=== PATIENT | male | born 1975 | race Two or more races ===

== ENCOUNTER → 2018-11-18 | Outpatient (CLI) | payer OTHER | END | disposition home or self-care (01) | LOC: Rad HDHVI 14:05 | PROVIDERS: ATTEND Internal Medicine Cardiovascular Disease | DX: R07.89 Other chest pain (principal); I10 Essential (primary) hypertension; E78.5 Hyperlipidemia, unspecified; Z82.49 Family history of ischemic heart disease and other diseases of the circulatory system | CPT/HCPCS: 78452; 93017; 93306; 96374; A9500 ==

== ENCOUNTER → 2022-07-29 | Outpatient (CLI) | payer OTHER ==
[2022-07-29 09:31] LABS: Urine Bacteria NONE SEEN /hpf (None Seen); Urine Blood 3+ /uL (Negative); Urine Specific Gravity 1.013 (1.001-1.035); Urine WBC 5 /hpf (0 - 3)
[2022-07-29 09:33] LABS: Basophils # (auto) 0.1 10 ^3/uL (0-0.2); Basophils % (auto) 0.7 % (0.0-2.0); Eosinophils # (auto) 0.2 10 ^3/uL (0-0.8); Hematocrit 46.1 % (41.0-53.0); Hemoglobin 15.5 g/dL (13.5-17.5); Lymphocytes # (auto) 2.8 10 ^3/uL (0.4-5.4); Lymphocytes % (auto) 32.4 % (10.0-50.0); Mean Corpuscular Hemoglobin 30.4 pg (28.0-32.0); Mean Corpuscular Hgb Conc. 33.5 g/dL (32.0-36.0); Mean Corpuscular Volume 90.5 fL (80.0-100.0); Monocytes # (auto) 0.8 10 ^3/uL (0-1.3); Monocytes % (auto) 9.2 % (0.0-12.0); Neutrophils # (auto) 4.8 10 ^3/uL (1.6-8.6); Neutrophils % (auto) 55.7 % (37.0-80.0); Nucleated Red Blood Cells % 0.2 %; Red Cell Distribution Width 13.2 % (11.8-14.3); White Blood Cell 8.7 10^3/uL (4.4-10.8)
[2022-07-29 09:47] LABS: Calcium 8.6 mg/dL (8.5-10.1); Potassium 4.1 mmol/L (3.5-5.1)
[2022-07-29 09:53] LABS: BUN/Creatinine Ratio 15.5; Bilirubin, Total 0.4 mg/dL (0.2-1.0); Total Protein 7.2 g/dL (6.4-8.2)
[2022-07-29 09:57] LABS: Free T4 (Free Thyroxine) 0.91 ng/dL (0.89-1.76); Prostate Specific Antigen 0.45 ng/mL (0.0-4.0)
== END | disposition home or self-care (01) ==
LOC: LAB 09:04
PROVIDERS: ATTEND Internal Medicine
DX: I10 Essential (primary) hypertension (principal); E29.1 Testicular hypofunction; R31.9 Hematuria, unspecified; R80.9 Proteinuria, unspecified
CPT/HCPCS: 36415; 80053; 80061; 81001; 83036; 84153; 84403; 84439; 84443; 85025; 86703; 86803

== ENCOUNTER 2022-08-14 13:45 | Emergency (ER) | payer OTHER ==
[~2022-08-14] VITALS: Ht 172.7 cm; Wt 108.1 kg
[2022-08-14] MEDS ORDERED: KETOROLAC TROMETH 30 MG/ML 1ML VIAL IM ONE (14:45)
[2022-08-14 15:03] LABS: Urine Bacteria NONE SEEN /hpf (None Seen); Urine Blood 1+ /uL (Negative); Urine Specific Gravity 1.016 (1.001-1.035); Urine WBC 1 /hpf (0 - 3)
[2022-08-14 15:20] LABS: Hematocrit 43.9 % (41.0-53.0); Hemoglobin 14.8 g/dL (13.5-17.5); Mean Corpuscular Hemoglobin 30.2 pg (28.0-32.0); Mean Corpuscular Hgb Conc. 33.8 g/dL (32.0-36.0); Red Cell Distribution Width 13.6 % (11.8-14.3); White Blood Cell 10.5 10^3/uL (4.4-10.8)
[2022-08-14 15:32] LABS: BUN/Creatinine Ratio 15.3; Calcium 8.4 mg/dL (8.5-10.1)
[2022-08-14 15:34] LABS: Bilirubin, Total 0.3 mg/dL (0.2-1.0)
[2022-08-14 15:44] LABS: Mean Corpuscular Volume 89.2 fL (80.0-100.0); Red Blood Cells 4.78 10^6/uL (4.5-5.90)
[2022-08-14 15:47] LABS: Band Neutrophils % (manual) 0; Basophils % (manual) 0 (0.0-2.0); Blast Cells 0; Metamyelocytes % 0; Myelocytes % 0; Promyelocytes % 0; Reactive Lymphocytes 0
[2022-08-14] MEDS ORDERED: TAMSULOSIN HYDROCHLORIDE 0.4 MG CAP PO ONE (16:00)
[2022-08-14] MEDS ORDERED: HYDROcodone-ACET 5/325MG TAB PO ONE (16:00)
[2022-08-14 16:22] LABS: Lymphocytes % (manual) 27 (10.0-50.0)
[2022-08-14 16:23] LABS: Eosinophils % (manual) 5 (0-7); Monocytes % (manual) 6 (0-12)
[2022-08-14] MEDS ORDERED: TAM04C PO (16:57)
[2022-08-14 18:03] VITALS: BP 137/77
== END 2022-08-14 18:05 | disposition home or self-care (01) ==
LOC: ER 13:48
DX: N20.9 Urinary calculus, unspecified (principal); N23 Unspecified renal colic; N13.30 Unspecified hydronephrosis; Z87.442 Personal history of urinary calculi; Z90.49 Acquired absence of other specified parts of digestive tract; Z98.890 Other specified postprocedural states
CPT/HCPCS: 36415; 74176; 80053; 81001; 85007; 85025; 85027; 96372; 99285; J1885

== ENCOUNTER → 2022-08-18 | Outpatient (CLI) | payer OTHER ==
[~2022-08-18] MED LIST: TAM04C PO
[2022-08-18 15:34] LABS: Basophils # (auto) 0.1 10 ^3/uL (0-0.2); Basophils % (auto) 1.1 % (0.0-2.0); Eosinophils # (auto) 0.1 10 ^3/uL (0-0.8); Eosinophils % (auto) 1.6 % (0.0-7.0); Hemoglobin 15.4 g/dL (13.5-17.5); Lymphocytes # (auto) 2.7 10 ^3/uL (0.4-5.4); Lymphocytes % (auto) 30.7 % (10.0-50.0); Mean Corpuscular Hemoglobin 30.6 pg (28.0-32.0); Mean Corpuscular Hgb Conc. 34.2 g/dL (32.0-36.0); Mean Corpuscular Volume 89.6 fL (80.0-100.0); Monocytes # (auto) 0.6 10 ^3/uL (0-1.3); Monocytes % (auto) 7.4 % (0.0-12.0); Neutrophils # (auto) 5.2 10 ^3/uL (1.6-8.6); Neutrophils % (auto) 59.2 % (37.0-80.0); Nucleated Red Blood Cells % 0.1 %; Red Blood Cells 5.02 10^6/uL (4.5-5.90); Red Cell Distribution Width 13.4 % (11.8-14.3); White Blood Cell 8.7 10^3/uL (4.4-10.8)
[2022-08-18 16:15] LABS: Urine Bacteria NONE SEEN /hpf (None Seen); Urine Blood TRACE /uL (Negative); Urine Mucus FEW (None Seen); Urine Specific Gravity 1.022 (1.001-1.035); Urine WBC 1 /hpf (0 - 3)
[2022-08-18 16:31] LABS: Albumin 3.9 g/dL (3.4-5.0); Calcium 8.3 mg/dL (8.5-10.1); Potassium 3.8 mmol/L (3.5-5.1)
[2022-08-18 16:34] LABS: BUN/Creatinine Ratio 15.6; Phosphorus 3.1 mg/dL (2.5-4.90); Uric Acid 6.3 mg/dL (3.5-7.2)
[2022-08-18 16:35] LABS: Protein, Urine 22.3 mg/dL (0.0-11.9)
== END | disposition home or self-care (01) ==
LOC: LAB 15:21
PROVIDERS: ATTEND Student in an Organized Health Care Education/Training Program
DX: N18.30 Chronic kidney disease, stage 3 unspecified (principal); E11.22 Type 2 diabetes mellitus with diabetic chronic kidney disease; E11.21 Type 2 diabetes mellitus with diabetic nephropathy; D63.1 Anemia in chronic kidney disease; N39.0 Urinary tract infection, site not specified; R80.9 Proteinuria, unspecified; E21.3 Hyperparathyroidism, unspecified; M10.9 Gout, unspecified; E55.9 Vitamin D deficiency, unspecified
CPT/HCPCS: 36415; 80069; 81001; 82306; 82570; 83970; 84156; 84550; 85025

== ENCOUNTER → 2022-11-16 | Day surgery (SDC) | payer OTHER ==
[2022-11-13 10:38] LABS: Basophils # (auto) 0.1 10 ^3/uL (0-0.2); Basophils % (auto) 0.5 % (0.0-2.0); Eosinophils # (auto) 0.2 10 ^3/uL (0-0.8); Eosinophils % (auto) 1.6 % (0.0-7.0); Hematocrit 49.3 % (41.0-53.0); Hemoglobin 16.4 g/dL (13.5-17.5); Lymphocytes # (auto) 3.5 10 ^3/uL (0.4-5.4); Lymphocytes % (auto) 27.3 % (10.0-50.0); Mean Corpuscular Hgb Conc. 33.4 g/dL (32.0-36.0); Mean Corpuscular Volume 89.9 fL (80.0-100.0); Monocytes # (auto) 0.8 10 ^3/uL (0-1.3); Monocytes % (auto) 6.4 % (0.0-12.0); Neutrophils # (auto) 8.2 10 ^3/uL (1.6-8.6); Neutrophils % (auto) 64.2 % (37.0-80.0); Nucleated Red Blood Cells % 0.4 %; Red Blood Cells 5.48 10^6/uL (4.5-5.90); Red Cell Distribution Width 13.9 % (11.8-14.3); White Blood Cell 12.7 10^3/uL (4.4-10.8)
[2022-11-13 10:44] LABS: Urine Bacteria NONE SEEN /hpf (None Seen); Urine Blood Negative /uL (Negative); Urine Mucus FEW (None Seen); Urine Specific Gravity 1.016 (1.001-1.035); Urine WBC 3 /hpf (0 - 3)
[2022-11-13 10:56] LABS: INR 1.01 (0.9-1.15); Partial Thromboplastin Time 26.9 sec (24.6-33.4)
[2022-11-13 11:09] LABS: Potassium 4.2 mmol/L (3.5-5.1)
[2022-11-13 11:19] LABS: Albumin 4.1 g/dL (3.4-5.0); BUN/Creatinine Ratio 12.7 (10.0-20.0); Bilirubin, Total 0.3 mg/dL (0.2-1.0); Calcium 9.1 mg/dL (8.5-10.1); Total Protein 7.4 g/dL (6.4-8.2)
[~2022-11-16] VITALS: Ht 172.7 cm; Wt 104.3 kg
[~2022-11-16] MED LIST changes: +DILT240C59 PO; +ESCI20TA PO; +HYDR-4798 PO; +HYDROmorphone HCL 2 MG/ML VL/or syr IV PRN; +IBUP800T26 PO; +LEVO750T8 PO; +LIDOCAINE 2% (LOCAL ANESTH.) PF 5ml SDV ONE; +LOSA-39 PO; +MAGN400T40 OR; +MIDAZOLAM HCL 2MG/2ML 2ml VIAL (1mg/ml) ONE; +ONDA-144 PO; +ONDANSETRON HCL 4 MG/2 ML VIAL IV PRN; +ONDANSETRON HCL 4 MG/2 ML VIAL ONE; +PROPOFOL 10 MG/ML 20 ML IV ONE; -TAM04C PO; +ceFAZolin 1GM/50ML 100 ML IV ONE; +fentaNYL CITRATE 100 MCG/2 ML VL ONE
[2022-11-16] MEDS: HYDROmorphone HCL 2 MG/ML VL/or syr IV PRN ×2 (08:54→09:04)
[2022-11-16 09:30] VITALS: BP 105/85
== END | disposition home or self-care (01) ==
LOC: SUR 06:09
PROVIDERS: ATTEND Urology
DX: N20.0 Calculus of kidney (principal); I10 Essential (primary) hypertension; Z79.899 Other long term (current) drug therapy
CPT/HCPCS: 36415; 50590; 80053; 81001; 85025; 85610; 85730; 87086; C1769; J0690; J1170; J2001; J2250; J2405; J2704; J3010; J7030

== ENCOUNTER 2022-11-18 14:42 | Emergency (ER) | payer OTHER ==
[~2022-11-18] VITALS: Ht 172.7 cm; Wt 108.0 kg
[~2022-11-18 14:42] MED LIST changes: -HYDR-4798 PO; -HYDROmorphone HCL 2 MG/ML VL/or syr IV PRN; -IBUP800T26 PO; -LEVO750T8 PO; -LIDOCAINE 2% (LOCAL ANESTH.) PF 5ml SDV ONE; -MIDAZOLAM HCL 2MG/2ML 2ml VIAL (1mg/ml) ONE; -ONDA-144 PO; -ONDANSETRON HCL 4 MG/2 ML VIAL IV PRN; -ONDANSETRON HCL 4 MG/2 ML VIAL ONE; -PROPOFOL 10 MG/ML 20 ML IV ONE; -ceFAZolin 1GM/50ML 100 ML IV ONE; -fentaNYL CITRATE 100 MCG/2 ML VL ONE
[2022-11-18 15:32] LABS: Urine Bacteria NONE SEEN /hpf (None Seen); Urine Blood 3+ /uL (Negative); Urine Budding Yeast OCCASIONAL /hpf (None Seen); Urine Specific Gravity 1.022 (1.001-1.035); Urine WBC 374 /hpf (0 - 3)
[2022-11-18] MEDS ORDERED: levoFLOXacin 250 MG TAB PO ONE (18:00)
[2022-11-18] MEDS ORDERED: LEVO750T8 PO (18:00)
[2022-11-18] MEDS ORDERED: HYDR-4798 PO (18:00)
[2022-11-18] MEDS ORDERED: HYDROcodone-ACET 10/325MG TAB PO ONE (18:00)
[2022-11-18] MEDS ORDERED: IBUP800T26 PO (18:00)
[2022-11-18] MEDS ORDERED: KETOROLAC TROMETH 60MG/2ML VIAL IM ONE (18:00)
[2022-11-18] MEDS ORDERED: ONDANSETRON ODT 4 MG TAB PO ONE (18:00)
[2022-11-18] MEDS ORDERED: ONDA-144 PO (18:01)
[2022-11-18 18:57] VITALS: BP 156/94
== END 2022-11-18 19:30 | disposition home or self-care (01) ==
LOC: ER 14:42
DX: N12 Tubulo-interstitial nephritis, not specified as acute or chronic (principal); R31.9 Hematuria, unspecified
CPT/HCPCS: 81001; 96372; 99284; J1885; Q0162

== ENCOUNTER 2022-11-23 16:13 | Inpatient (IN) | payer OTHER ==
[~2022-11-23] VITALS: Ht 172.7 cm; Wt 106.5 kg
[~2022-11-23 16:13] MED LIST changes: +HYDR-4798 PO; +IBUP800T26 PO; +LEVO750T8 PO; +ONDA-144 PO
[2022-11-23] MEDS ORDERED: ONDANSETRON HCL 4 MG/2 ML VIAL IV ONE (16:45)
[2022-11-23] MEDS ORDERED: KETOROLAC TROMETH 30 MG/ML 1ML VIAL IV ONE (16:45)
[2022-11-23] MEDS ORDERED: SODIUM CHLORIDE 0.9% 1,000 ML IVB ONE (16:45)
[2022-11-23 17:44] LABS: Basophils # (auto) 0.1 10 ^3/uL (0-0.2); Basophils % (auto) 0.6 % (0.0-2.0); Eosinophils # (auto) 0.1 10 ^3/uL (0-0.8); Eosinophils % (auto) 0.9 % (0.0-7.0); Hematocrit 49.2 % (41.0-53.0); Hemoglobin 16.3 g/dL (13.5-17.5); Lymphocytes % (auto) 23.5 % (10.0-50.0); Mean Corpuscular Hemoglobin 29.8 pg (28.0-32.0); Mean Corpuscular Hgb Conc. 33.2 g/dL (32.0-36.0); Mean Corpuscular Volume 89.8 fL (80.0-100.0); Monocytes # (auto) 1.2 10 ^3/uL (0-1.3); Monocytes % (auto) 9.1 % (0.0-12.0); Neutrophils # (auto) 8.6 10 ^3/uL (1.6-8.6); Neutrophils % (auto) 65.9 % (37.0-80.0); Nucleated Red Blood Cells % 0.4 %; Red Blood Cells 5.48 10^6/uL (4.5-5.90)
[2022-11-23 17:56] LABS: Albumin 4.2 g/dL (3.4-5.0); Calcium 8.7 mg/dL (8.5-10.1); Potassium 3.6 mmol/L (3.5-5.1)
[2022-11-23 17:59] LABS: BUN/Creatinine Ratio 10.9 (10.0-20.0); Bilirubin, Total 0.3 mg/dL (0.2-1.0); Total Protein 6.8 g/dL (6.4-8.2)
[2022-11-23] MEDS ORDERED: HYDROmorphone HCL 2 MG/ML VL/or syr IV ONE (18:30)
[2022-11-23 20:33] LABS: Urine Bacteria NONE SEEN /hpf (None Seen); Urine Blood Negative /uL (Negative); Urine Mucus FEW (None Seen); Urine Specific Gravity 1.025 (1.001-1.035); Urine WBC 1 /hpf (0 - 3)
[2022-11-23] MEDS ORDERED: ACETAMINOPHEN 325 MG TAB PO PRN (21:00)
[2022-11-23] MEDS: MORPHINE SULFATE INJ 2 MG/ml SYRG IV PRN (23:07)
[2022-11-23] MEDS: ONDANSETRON HCL 4 MG/2 ML VIAL IV PRN (23:07)
[2022-11-23] MEDS: HYDROcodone-ACET 5/325MG TAB PO PRN (23:53)
[2022-11-24] MEDS ORDERED: HYDROmorphone HCL 2 MG/ML VL/or syr IV ONE (01:00)
[2022-11-24] MEDS: ONDANSETRON HCL 4 MG/2 ML VIAL IV PRN (04:03)
[2022-11-24] MEDS: HYDROcodone-ACET 5/325MG TAB PO PRN ×3 (04:05→16:48)
[2022-11-24 06:46] LABS: Basophils # (auto) 0 10 ^3/uL (0-0.2); Basophils % (auto) 0.4 % (0.0-2.0); Eosinophils # (auto) 0 10 ^3/uL (0-0.8); Eosinophils % (auto) 0.2 % (0.0-7.0); Hematocrit 46.1 % (41.0-53.0); Hemoglobin 15.6 g/dL (13.5-17.5); Lymphocytes # (auto) 1.5 10 ^3/uL (0.4-5.4); Lymphocytes % (auto) 13.5 % (10.0-50.0); Mean Corpuscular Hemoglobin 30.2 pg (28.0-32.0); Mean Corpuscular Hgb Conc. 33.7 g/dL (32.0-36.0); Mean Corpuscular Volume 89.5 fL (80.0-100.0); Monocytes # (auto) 0.7 10 ^3/uL (0-1.3); Monocytes % (auto) 6.8 % (0.0-12.0); Neutrophils # (auto) 8.6 10 ^3/uL (1.6-8.6); Neutrophils % (auto) 79.1 % (37.0-80.0); Red Blood Cells 5.15 10^6/uL (4.5-5.90); Red Cell Distribution Width 13.9 % (11.8-14.3); White Blood Cell 10.8 10^3/uL (4.4-10.8)
[2022-11-24 06:49] LABS: BUN/Creatinine Ratio 11.4 (10.0-20.0); Calcium 8.7 mg/dL (8.5-10.1); Potassium 3.9 mmol/L (3.5-5.1)
[2022-11-24] MEDS: MORPHINE SULFATE INJ 2 MG/ml SYRG IV PRN (07:05)
[2022-11-24] MEDS ORDERED: MANNITOL FTV 25% 12.5 GM/50 ML 50 ML IV ONE (09:45)
[2022-11-24] MEDS ORDERED: cloNIDine HCL 0.1 MG TAB PO PRN (09:45)
[2022-11-24] MEDS: HYDROmorphone HCL 2 MG/ML VL/or syr IV PRN (09:53)
[2022-11-24] MEDS ORDERED: LEXAPRO 20 MG PO SCH (10:00)
[2022-11-24] MEDS: SODIUM CHLORIDE 0.9% 1,000 ML IV SCH (11:16)
[2022-11-24] MEDS: cefTRIAXone 1GM/50ML D5W 50 ML IV SCH (11:17)
[2022-11-24] MEDS: dilTIAZem 120MG ER CAP PO SCH (11:17)
[2022-11-24] MEDS: CITALOPRAM HYDROBR 20 MG TAB PO SCH (11:18)
[2022-11-24] MEDS: TEMAZEPAM 15 MG CAP PO PRN ×2 (11:18→21:39)
[2022-11-24] MEDS: LOSARTAN POTASSIUM 50 MG TAB PO SCH (11:18)
[2022-11-24] MEDS: PANTOPRAZOLE 40 MG TAB PO SCH (11:19)
[2022-11-24] MEDS ORDERED: [UNRECOGNIZED DRUG - OTHER] IV ONE (11:45)
[2022-11-24] MEDS: KETOROLAC TROMETH 30 MG/ML 1ML VIAL IV PRN ×2 (12:36→20:12)
[2022-11-24 17:00] VITALS: BP 133/63
[2022-11-24] MEDS: TAMSULOSIN HYDROCHLORIDE 0.4 MG CAP PO SCH (19:15)
[2022-11-24 20:48] LABS: Hepatitis C Antibody Negative (Negative)
[2022-11-24 22:00] VITALS: BP 137/60
[2022-11-25] MEDS: SODIUM CHLORIDE 0.9% 1,000 ML IV SCH ×2 (03:45→23:01)
[2022-11-25 05:00] VITALS: BP 108/67
[2022-11-25 06:29] LABS: BUN/Creatinine Ratio 13.3 (10.0-20.0); Calcium 8.7 mg/dL (8.5-10.1); Potassium 3.7 mmol/L (3.5-5.1)
[2022-11-25 06:33] LABS: Basophils # (auto) 0 10 ^3/uL (0-0.2); Basophils % (auto) 0.2 % (0.0-2.0); Eosinophils # (auto) 0.1 10 ^3/uL (0-0.8); Eosinophils % (auto) 0.5 % (0.0-7.0); Hematocrit 45.7 % (41.0-53.0); Hemoglobin 15.5 g/dL (13.5-17.5); Lymphocytes # (auto) 1.6 10 ^3/uL (0.4-5.4); Mean Corpuscular Hemoglobin 30.3 pg (28.0-32.0); Mean Corpuscular Hgb Conc. 33.9 g/dL (32.0-36.0); Mean Corpuscular Volume 89.4 fL (80.0-100.0); Monocytes # (auto) 1.1 10 ^3/uL (0-1.3); Monocytes % (auto) 8.5 % (0.0-12.0); Neutrophils # (auto) 10.2 10 ^3/uL (1.6-8.6); Neutrophils % (auto) 78.8 % (37.0-80.0); Nucleated Red Blood Cells % 0.2 %; Red Blood Cells 5.11 10^6/uL (4.5-5.90); Red Cell Distribution Width 13.9 % (11.8-14.3); White Blood Cell 12.9 10^3/uL (4.4-10.8)
[2022-11-25] MEDS: KETOROLAC TROMETH 30 MG/ML 1ML VIAL IV PRN ×2 (07:59→14:50)
[2022-11-25 08:39] VITALS: BP 112/50
[2022-11-25] MEDS: HYDROcodone-ACET 5/325MG TAB PO PRN ×2 (09:03→16:01)
[2022-11-25] MEDS: cefTRIAXone 1GM/50ML D5W 50 ML IV SCH (09:03)
[2022-11-25] MEDS: PANTOPRAZOLE 40 MG TAB PO SCH (09:03)
[2022-11-25] MEDS: CITALOPRAM HYDROBR 20 MG TAB PO SCH (09:03)
[2022-11-25] MEDS: dilTIAZem 120MG ER CAP PO SCH (09:07)
[2022-11-25] MEDS: LOSARTAN POTASSIUM 50 MG TAB PO SCH (09:09)
[2022-11-25] MEDS: HYDROmorphone HCL 2 MG/ML VL/or syr IV PRN (12:01)
[2022-11-25 13:00] VITALS: BP 144/78
[2022-11-25 17:00] VITALS: BP 156/81
[2022-11-25] MEDS ORDERED: LACTULOSE 20Gm/30ML SOLN PO ONE (17:00)
[2022-11-25] MEDS ORDERED: BISACODYL 5 MG EC TAB PO ONE (17:00)
[2022-11-25] MEDS ORDERED: ERGOCALCIFEROL 50,000 UNIT(1.25MG) CAP PO SCH (17:45)
[2022-11-25] MEDS ORDERED: MANNITOL 20% SOLN 100 gm/500ml 62.5 ML IV ONE (18:00)
[2022-11-25] MEDS: TAMSULOSIN HYDROCHLORIDE 0.4 MG CAP PO SCH (18:13)
[2022-11-25] MEDS ORDERED: TAMSULOSIN HYDROCHLORIDE 0.4 MG CAP PO SCH (18:30)
[2022-11-25 19:23] LABS: INR 1.04 (0.9-1.15)
[2022-11-25 20:00] VITALS: BP 149/79
[2022-11-25 22:00] VITALS: BP 149/79
[2022-11-25] MEDS: TEMAZEPAM 15 MG CAP PO PRN (22:58)
[2022-11-26 05:00] VITALS: BP 163/96
[2022-11-26] MEDS: ONDANSETRON HCL 4 MG/2 ML VIAL IV PRN (05:23)
[2022-11-26 06:15] VITALS: BP 155/84
[2022-11-26 06:19] LABS: BUN/Creatinine Ratio 15.1 (10.0-20.0); Calcium 9.1 mg/dL (8.5-10.1); Potassium 3.3 mmol/L (3.5-5.1)
[2022-11-26 08:00] VITALS: BP 140/90
[2022-11-26] MEDS: cefTRIAXone 1GM/50ML D5W 50 ML IV SCH (08:39)
[2022-11-26 09:00] VITALS: BP 145/84
[2022-11-26] MEDS: PANTOPRAZOLE 40 MG TAB PO SCH (10:36)
[2022-11-26] MEDS: CITALOPRAM HYDROBR 20 MG TAB PO SCH (10:36)
[2022-11-26] MEDS: LOSARTAN POTASSIUM 50 MG TAB PO SCH (10:36)
[2022-11-26] MEDS: dilTIAZem 120MG ER CAP PO SCH (10:37)
[2022-11-26] MEDS ORDERED: POTASSIUM CHL 20 Meq TABLET PO ONE (10:45)
[2022-11-26 12:00] VITALS: BP 140/90
[2022-11-26 15:00] VITALS: BP 145/84
== END 2022-11-26 15:30 | disposition home or self-care (01) | DRG 694 ==
LOC: ER 16:13 → OVERFLOW 20:58 → EAST 11-24 16:15
PROVIDERS: ADMIT Nurse Practitioner; ATTEND Internal Medicine
DX: N13.2 Hydronephrosis with renal and ureteral calculous obstruction (principal); E66.01 Morbid (severe) obesity due to excess calories; I11.9 Hypertensive heart disease without heart failure; E55.9 Vitamin D deficiency, unspecified; Z68.35 Body mass index [BMI] 35.0-35.9, adult
CPT/HCPCS: 36415; 74176; 76775; 80048; 80053; 81001; 82306; 83036; 85025; 85610; 86803; 87340; 96361; 96365; 96367; 96375; 96376; G0378; J0696; J1885; J2405

== ENCOUNTER → 2022-12-09 | Outpatient (CLI) | payer OTHER ==
[~2022-12-09] MED LIST changes: +IBUP-1455 PO; -IBUP800T26 PO; -LOSA-39 PO; +LOSA100T58 PO
[2022-12-09 14:21] LABS: Basophils # (auto) 0.1 10 ^3/uL (0-0.2); Basophils % (auto) 0.8 % (0.0-2.0); Eosinophils # (auto) 0.3 10 ^3/uL (0-0.8); Eosinophils % (auto) 2.5 % (0.0-7.0); Hematocrit 48.2 % (41.0-53.0); Hemoglobin 16.1 g/dL (13.5-17.5); Lymphocytes # (auto) 3.1 10 ^3/uL (0.4-5.4); Lymphocytes % (auto) 25.1 % (10.0-50.0); Mean Corpuscular Hemoglobin 30.1 pg (28.0-32.0); Mean Corpuscular Hgb Conc. 33.3 g/dL (32.0-36.0); Mean Corpuscular Volume 90.5 fL (80.0-100.0); Monocytes # (auto) 0.6 10 ^3/uL (0-1.3); Monocytes % (auto) 5.1 % (0.0-12.0); Neutrophils # (auto) 8.1 10 ^3/uL (1.6-8.6); Neutrophils % (auto) 66.5 % (37.0-80.0); Nucleated Red Blood Cells % 0.2 %; Red Blood Cells 5.33 10^6/uL (4.5-5.90); Red Cell Distribution Width 13.8 % (11.8-14.3); White Blood Cell 12.2 10^3/uL (4.4-10.8)
[2022-12-09 14:56] LABS: BUN/Creatinine Ratio 8.9 (10.0-20.0); Calcium 8.6 mg/dL (8.5-10.1); Potassium 3.9 mmol/L (3.5-5.1); Urine Bacteria NONE SEEN /hpf (None Seen); Urine Blood Negative /uL (Negative); Urine Mucus FEW (None Seen); Urine Specific Gravity 1.018 (1.001-1.035); Urine WBC 1 /hpf (0 - 3)
== END | disposition home or self-care (01) ==
LOC: LAB 14:05
PROVIDERS: ATTEND Internal Medicine
DX: N18.2 Chronic kidney disease, stage 2 (mild) (principal); N17.9 Acute kidney failure, unspecified; R31.0 Gross hematuria
CPT/HCPCS: 36415; 80048; 81001; 85025